=== PATIENT | female | born 1995 | race African-American/Black ===

== ENCOUNTER 2021-10-01 20:39 | Emergency (ER) | payer BC ==
[2021-10-02 22:48] LABS: SARS-CoV-2 PCR by NAA DETECTED (NotDetected)
== END 2021-10-01 21:17 | disposition home or self-care (01) ==
LOC: NAV ERS 20:39
DX: U07.1 COVID-19 (principal); J06.9 Acute upper respiratory infection, unspecified; G47.00 Insomnia, unspecified; H60.92 Unspecified otitis externa, left ear
CPT/HCPCS: 99283; U0003; U0005